=== PATIENT | female | born 1965 | race Caucasian/White ===

== ENCOUNTER 2016-12-17 08:37 | Day surgery (SDC) | payer OTHER ==
[~2016-12-17 08:37] MED LIST: PROPOFOL INJ 200 MG/20 ML VIAL IV ONE
[2016-12-17 10:33] VITALS: BP 127/71
--- NOTE | 2016-12-17 12:40 | Operative Report ---
Operative Report DATE OF SURGERY: 12/17/16 Operative Report: The risks, benefits and alternatives of the procedure including risks of bleeding, perforation requiring surgery are explained to the patient detail and informed consent is obtained. Patient is placed in a left lateral decubital position. She is brought back to the endoscopy suite. Timeout is called. Propofol medications administered. A rectal examination was done which did not reveal any masses, tears or fissures. An Olympus video scope was inserted into the patient's rectum. The scope was then gradually advanced all the way to the cecum. The cecum is identified by the usual anatomical landmarks including the ileocecal valve as well as the appendiceal office. Photodocumentation is obtained. Prep is good. The scope was then sequentially pulled back via the various segments of the colon including the ascending colon, hepatic flexure, answers colon, splenic flexure, descending colon, and finally into the rectosigmoid portions of the colon. Retroflexion maneuvers performed. PREOPERATIVE DIAGNOSIS: Personal history of the polyp. POSTOPERATIVE DIAGNOSIS: Rectal polyp that required snare polypectomy. 2 other small polyps that were removed via biopsy forceps. Internal hemorrhoids OPERATION: Colonoscopy with snare polypectomy. Colonoscopy with biopsy SURGEON: TYLER JACK ANESTHESIA: LMAC TISSUE REMOVED OR ALTERED: All polyps retrieved. COMPLICATIONS: None. ESTIMATED BLOOD LOSS: none. INTRAOPERATIVE FINDINGS: No masses, AVMs, diverticulosis noted. As described above. PROCEDURE: Patient tolerated procedure well. No immediate postprocedure complications are noted. Patient is discharged in good condition. Discharge date 12/17/2016. Discharge diet: Regular. Discharge activity: Regular. Patient does have a 2-3 week follow-up to discuss findings. Patient will need a 3 to five-year surveillance depending on the pathology of the polyp. We'll await on biopsies. Patient is instructed to call the office or proceed to the emergency room should there be any further problems or questions.
== END 2016-12-17 10:33 | disposition home or self-care (01) ==
LOC: END 08:37
PROVIDERS: ATTEND Internal Medicine Gastroenterology
PROC: 0DBN8ZX Excision of Sigmoid Colon, Via Natural or Artificial Opening Endoscopic, Diagnostic (ICD-10-PCS; principal; 2016-12-17 11:00)
PROC: 0DBP8ZX Excision of Rectum, Via Natural or Artificial Opening Endoscopic, Diagnostic (ICD-10-PCS; 2016-12-17 11:00)
DX: D12.5 Benign neoplasm of sigmoid colon (principal); K62.1 Rectal polyp; K64.8 Other hemorrhoids; F17.210 Nicotine dependence, cigarettes, uncomplicated; E78.5 Hyperlipidemia, unspecified; F41.9 Anxiety disorder, unspecified; F32.9 Major depressive disorder, single episode, unspecified; E11.00 Type 2 diabetes mellitus with hyperosmolarity without nonketotic hyperglycemic-hyperosmolar coma (NKHHC); E03.9 Hypothyroidism, unspecified; Z79.82 Long term (current) use of aspirin; Z79.899 Other long term (current) drug therapy; Z79.84 Long term (current) use of oral hypoglycemic drugs
CPT/HCPCS: 45380; 45385; 82962; 88305 ×2; J2704; 810

== ENCOUNTER → 2017-06-12 | Outpatient (CLI) | payer OTHER | LOC: WI 08:38 | PROVIDERS: ATTEND Internal Medicine Gastroenterology | DX: Z53.9 Procedure and treatment not carried out, unspecified reason (principal) ==

== ENCOUNTER → 2017-06-20 | Outpatient (CLI) | payer OTHER ==
--- NOTE | 2017-06-21 09:49 | WOMENS IMAGING REPORT ---
EXAM DESCRIPTION: BILAT DIAGNOSTIC MAMMO W/CAD; U/S BREAST UNILAT LIMITED COMPLETED DATE/TIME: 06/20/2017 10:43 am; 06/20/2017 12:32 pm REASON FOR STUDY: NIPPLE DISCHARGE; N64.52; NIPPLE DISCHARGE;N64.52 N64.52 NIPPLE DISCHARGE Bloody nipple discharge bilaterally COMPARISON: Mammograms 03/02/2011, 04/19/2014 Breast ultrasound 03/15/2011 TECHNIQUE: Standard craniocaudal and mediolateral oblique views of each breast recorded using digita l acquisition. Bilateral 90 mediolateral views were obtained. Right breast compression magnification views, left b reast cone compression in the central retroareolar region LIMITATIONS: None. FINDINGS: RIGHT BREAST MASSES: No suspicious masses. Stable right retroareolar 13 mm nodule 6 o'clock position to 2010 CALCIFICATIONS: No new or suspicious calcifications. Stable calcifications upper inner quadrant righ t breast compared to 2014 ARCHITECTURAL DISTORTION: None. DEVELOPING DENSITY: None. ASYMMETRY: None noted. OTHER: No other significant findings. LEFT BREAST MASSES: No suspicious masses. Small mammographic nodules in the left retroareolar region, low-densit y, subsequently shown to represent fibroadenomas at ultrasound CALCIFICATIONS: No new or suspicious calcifications. ARCHITECTURAL DISTORTION: None. DEVELOPING DENSITY: None. ASYMMETRY: None noted. OTHER: No other significant finding. Read with the assistance of CAD: .[facility] - R2 Cenova Version 1.3 .[facility] - R2 Cenova Version 1.3 .[facility] - R2 Cenova Version 2.4 .[facility] - R2 Cenova Version 2.4 .REPLACED BY [facility] - R2 Security Manager Version 9.2 Bilateral breast ultrasound: Right and left breast ultrasound was performed evaluating history of bloody nipple discharge. There are no retroareolar dilated ducts or intraductal nodules. No solid shadowing nodules worrisome for m alignancy. On the right side, a 13 mm fibroadenoma is present unchanged prior ultrasound in 2010. On the left side, an 11 mm fibroadenoma present at the 1 to 2 o'clock position, a 7 mm fibroadenoma p resent retroareolar region 12 o'clock position Set IMPRESSION: Benign findings bilaterally at mammography and ultrasound. No imaging findings to date to explain history of nipple discharge. Bloody nipple discharge requires further investigation, with bilateral breast MRI with contrast, or b ilateral ductogram BREAST DENSITY: b. There are scattered areas of fibroglandular density. BIRAD: 0 Incomplete: Needs additional imaging evaluation for comparison. Bilateral breast MRI recom mended for followup RECOMMENDATION: RECOMMENDED FOLLOW UP: Bilateral breast MRI with contrast recommended for follow-up. Continued evaluation for bloody nipple discharge bilaterally. SPECIFIC INTERVENTION/IMAGING/CONSULTATION RECOMMENDED:Bilateral breast MRI with contrast COMMUNICATION:Patient notified by letter COMMENT: The patient has been notified of the results by letter per MQSA requirements. Additional no tification policies are in place for contacting patient with suspicious or incomplete findings. Quality ID #[id number]: The [employer] recommends an annual screening mammogram for women aged 40 years or over. This facility utilizes a reminder system to ensure that all patients receive reminder letters, and/or direct phone calls for appointments. This includes reminders for routine scr eening mammograms, diagnostic mammograms, or other Breast Imaging Interventions when appropriate. Th is patient will be placed in the appropriate reminder system. The [employer] (ACR) has developed recommendations for screening MRI of the breast s in certain patient populations, to be used in conjunction with mammography. Breast MRI surveillanc e may be appropriate for women with more than 20% lifetime risk of developing breast cancer as deter mined by genetic testing, significant family history of the disease, or history of mantle radiation f or Hodgkins Disease. ACR Practice Guidelines 2008. TECHNICAL DOCUMENTATION: FINDING NUMBER: (1) ASSESSMENT: (1) JOB ID: [id number] [employer]- All Rights Reserved
--- NOTE | 2017-06-21 09:49 | WOMENS IMAGING REPORT ---
EXAM DESCRIPTION: BILAT DIAGNOSTIC MAMMO W/CAD; U/S BREAST UNILAT LIMITED COMPLETED DATE/TIME: 06/20/2017 10:43 am; 06/20/2017 12:32 pm REASON FOR STUDY: NIPPLE DISCHARGE; N64.52; NIPPLE DISCHARGE;N64.52 N64.52 NIPPLE DISCHARGE Bloody nipple discharge bilaterally COMPARISON: Mammograms 03/02/2011, 04/19/2014 Breast ultrasound 03/15/2011 TECHNIQUE: Standard craniocaudal and mediolateral oblique views of each breast recorded using digita l acquisition. Bilateral 90 mediolateral views were obtained. Right breast compression magnification views, left b reast cone compression in the central retroareolar region LIMITATIONS: None. FINDINGS: RIGHT BREAST MASSES: No suspicious masses. Stable right retroareolar 13 mm nodule 6 o'clock position to 2010 CALCIFICATIONS: No new or suspicious calcifications. Stable calcifications upper inner quadrant righ t breast compared to 2014 ARCHITECTURAL DISTORTION: None. DEVELOPING DENSITY: None. ASYMMETRY: None noted. OTHER: No other significant findings. LEFT BREAST MASSES: No suspicious masses. Small mammographic nodules in the left retroareolar region, low-densit y, subsequently shown to represent fibroadenomas at ultrasound CALCIFICATIONS: No new or suspicious calcifications. ARCHITECTURAL DISTORTION: None. DEVELOPING DENSITY: None. ASYMMETRY: None noted. OTHER: No other significant finding. Read with the assistance of CAD: .[facility] - R2 Cenova Version 1.3 .[facility] - R2 Cenova Version 1.3 .[facility] - R2 Cenova Version 2.4 .[facility] - R2 Cenova Version 2.4 .[facility] - R2 Stove Cleaner Version 9.2 Bilateral breast ultrasound: Right and left breast ultrasound was performed evaluating history of bloody nipple discharge. There are no retroareolar dilated ducts or intraductal nodules. No solid shadowing nodules worrisome for m alignancy. On the right side, a 13 mm fibroadenoma is present unchanged prior ultrasound in 2010. On the left side, an 11 mm fibroadenoma present at the 1 to 2 o'clock position, a 7 mm fibroadenoma p resent retroareolar region 12 o'clock position Set IMPRESSION: Benign findings bilaterally at mammography and ultrasound. No imaging findings to date to explain history of nipple discharge. Bloody nipple discharge requires further investigation, with bilateral breast MRI with contrast, or b ilateral ductogram BREAST DENSITY: b. There are scattered areas of fibroglandular density. BIRAD: 0 Incomplete: Needs additional imaging evaluation for comparison. Bilateral breast MRI recom mended for followup RECOMMENDATION: RECOMMENDED FOLLOW UP: Bilateral breast MRI with contrast recommended for follow-up. Continued evaluation for bloody nipple discharge bilaterally. SPECIFIC INTERVENTION/IMAGING/CONSULTATION RECOMMENDED:Bilateral breast MRI with contrast COMMUNICATION:Patient notified by letter COMMENT: The patient has been notified of the results by letter per MQSA requirements. Additional no tification policies are in place for contacting patient with suspicious or incomplete findings. Quality ID #[id number]: The [employer] recommends an annual screening mammogram for women aged 40 years or over. This facility utilizes a reminder system to ensure that all patients receive reminder letters, and/or direct phone calls for appointments. This includes reminders for routine scr eening mammograms, diagnostic mammograms, or other Breast Imaging Interventions when appropriate. Th is patient will be placed in the appropriate reminder system. The [employer] (ACR) has developed recommendations for screening MRI of the breast s in certain patient populations, to be used in conjunction with mammography. Breast MRI surveillanc e may be appropriate for women with more than 20% lifetime risk of developing breast cancer as deter mined by genetic testing, significant family history of the disease, or history of mantle radiation f or Hodgkins Disease. ACR Practice Guidelines 2008. TECHNICAL DOCUMENTATION: FINDING NUMBER: (1) ASSESSMENT: (1) JOB ID: [id number] [employer]- All Rights Reserved
--- NOTE | 2017-06-21 09:49 | WOMENS IMAGING REPORT ---
EXAM DESCRIPTION: BILAT DIAGNOSTIC MAMMO W/CAD; U/S BREAST UNILAT LIMITED COMPLETED DATE/TIME: 06/20/2017 10:43 am; 06/20/2017 12:32 pm REASON FOR STUDY: NIPPLE DISCHARGE; N64.52; NIPPLE DISCHARGE;N64.52 N64.52 NIPPLE DISCHARGE Bloody nipple discharge bilaterally COMPARISON: Mammograms 03/02/2011, 04/19/2014 Breast ultrasound 03/15/2011 TECHNIQUE: Standard craniocaudal and mediolateral oblique views of each breast recorded using digita l acquisition. Bilateral 90 mediolateral views were obtained. Right breast compression magnification views, left b reast cone compression in the central retroareolar region LIMITATIONS: None. FINDINGS: RIGHT BREAST MASSES: No suspicious masses. Stable right retroareolar 13 mm nodule 6 o'clock position to 2010 CALCIFICATIONS: No new or suspicious calcifications. Stable calcifications upper inner quadrant righ t breast compared to 2014 ARCHITECTURAL DISTORTION: None. DEVELOPING DENSITY: None. ASYMMETRY: None noted. OTHER: No other significant findings. LEFT BREAST MASSES: No suspicious masses. Small mammographic nodules in the left retroareolar region, low-densit y, subsequently shown to represent fibroadenomas at ultrasound CALCIFICATIONS: No new or suspicious calcifications. ARCHITECTURAL DISTORTION: None. DEVELOPING DENSITY: None. ASYMMETRY: None noted. OTHER: No other significant finding. Read with the assistance of CAD: .[facility] - R2 Cenova Version 1.3 .[facility] - R2 Cenova Version 1.3 .[facility] - R2 Cenova Version 2.4 .[facility] - R2 Cenova Version 2.4 .[facility] - R2 Business Services Specialist Sales Version 9.2 Bilateral breast ultrasound: Right and left breast ultrasound was performed evaluating history of bloody nipple discharge. There are no retroareolar dilated ducts or intraductal nodules. No solid shadowing nodules worrisome for m alignancy. On the right side, a 13 mm fibroadenoma is present unchanged prior ultrasound in 2010. On the left side, an 11 mm fibroadenoma present at the 1 to 2 o'clock position, a 7 mm fibroadenoma p resent retroareolar region 12 o'clock position Set IMPRESSION: Benign findings bilaterally at mammography and ultrasound. No imaging findings to date to explain history of nipple discharge. Bloody nipple discharge requires further investigation, with bilateral breast MRI with contrast, or b ilateral ductogram BREAST DENSITY: b. There are scattered areas of fibroglandular density. BIRAD: 0 Incomplete: Needs additional imaging evaluation for comparison. Bilateral breast MRI recom mended for followup RECOMMENDATION: RECOMMENDED FOLLOW UP: Bilateral breast MRI with contrast recommended for follow-up. Continued evaluation for bloody nipple discharge bilaterally. SPECIFIC INTERVENTION/IMAGING/CONSULTATION RECOMMENDED:Bilateral breast MRI with contrast COMMUNICATION:Patient notified by letter COMMENT: The patient has been notified of the results by letter per MQSA requirements. Additional no tification policies are in place for contacting patient with suspicious or incomplete findings. Quality ID #[id number]: The [employer] recommends an annual screening mammogram for women aged 40 years or over. This facility utilizes a reminder system to ensure that all patients receive reminder letters, and/or direct phone calls for appointments. This includes reminders for routine scr eening mammograms, diagnostic mammograms, or other Breast Imaging Interventions when appropriate. Th is patient will be placed in the appropriate reminder system. The [employer] [place] [employer] (ACR) has developed recommendations for screening MRI of the breast s in certain patient populations, to be used in conjunction with mammography. Breast MRI surveillanc e may be appropriate for women with more than 20% lifetime risk of developing breast cancer as deter mined by genetic testing, significant family history of the disease, or history of mantle radiation f or Hodgkins Disease. ACR Practice Guidelines 2008. TECHNICAL DOCUMENTATION: FINDING NUMBER: (1) ASSESSMENT: (1) JOB ID: [id number] [employer]- All Rights Reserved
== END ==
LOC: WI 10:37
PROVIDERS: ATTEND Family Medicine
DX: N64.52 Nipple discharge (principal)
CPT/HCPCS: 76642; G0204; 77066

== ENCOUNTER → 2017-07-05 | Outpatient (CLI) | payer OTHER ==
--- NOTE | 2017-07-10 09:03 | RADIOLOGY REPORT (SQ) ---
EXAM DESCRIPTION: MRI BREAST BILAT W AND/OR WO COMPLETED DATE/TIME: 07/05/2017 4:26 pm REASON FOR STUDY: NIPPLE DISCHARGE N64.52 NIPPLE DISCHARGE COMPARISON: Prior mammography and ultrasound. PATHOLOGIC CORRELATION: None. CONTRAST TYPE AND DOSE: 20 mL Prohance. RENAL FUNCTION: None required. The patient is less than 50 years old. TECHNIQUE: MR imaging performed with a dedicated breast coil. Pre contrast T1 and T2 weighted images . Pre contrast and post contrast enhanced T1 weighted images with fat saturation. Subtraction images, 3D thick and thin MIPS, and kinetic analysis performed on an independent workstat ion. ([employer] workstation) Magnet strength: 1.5 T LIMITATIONS: None. FINDINGS: BREAST DENSITY: b. There are scattered areas of fibroglandular density. BACKGROUND PARENCHYMAL ENHANCEMENT:Minimal. RIGHT BREAST: Stable 1.3 cm fibroadenoma at 6 o'clock. 1.2 cm oval mass with dark internal septi 10 cm from the nipple at 4 o'clock with type 1 enhancement curve, typical of fibroadenoma. No suspiciou s masses. No clumped, regional/segmental ductal enhancement. CHEST WALL: Normal tissue planes. No abnormal internal mammary nodes. AXILLA: Normal axillary and retro-pectoral nodes. LEFT BREAST:Periareolar cyst measuring 1 cm. No clumped, regional/segmental ductal enhancement. CHEST WALL: Normal tissue planes. No abnormal internal mammary nodes. AXILLA: Normal axillary and retro-pectoral nodes. OTHER:No identified liver, bone, or lung lesions. No other significant incidental findings. IMPRESSION: Benign findings in both breasts without explanation for bloody nipple discharge. BIRAD: RIGHT BREAST: 2 Benign findings. LEFT BREAST: 2 Benign findings. RECOMMENDATION: RECOMMENDED FOLLOW-UP: [employer] TECHNICAL DOCUMENTATION: JOB ID: [id number] [employer]- All Rights Reserved
== END ==
LOC: RAD 14:50
PROVIDERS: ATTEND Family Medicine
DX: N64.52 Nipple discharge (principal)
CPT/HCPCS: 82565; A9576; C8906; 77059